=== PATIENT | male | born 1960 | race Caucasian/White ===

== ENCOUNTER → 2021-10-16 15:41 | Outpatient (REF) | payer BC, SELFPAY | LOC: ANHLAB 15:41 | PROVIDERS: PCP Physician Assistant; Visit Provider Nurse Practitioner | DX: C44.329 Squamous cell carcinoma of skin of other parts of face (principal) | CPT/HCPCS: 88305; 88342 ==

== ENCOUNTER 2021-10-22 10:09 | Outpatient (CLI) | payer BC, SELFPAY ==
--- NOTE | ~2021-10-22 | CT_ITS ---
EXAMINATION: CT soft tissue neck wo/w con DATE: 10/22/2021 10:55 INDICATION: Right cheek squamous cell carcinoma. TECHNIQUE: Computed tomography (CT) of the neck was performed without and with 100 mL Omnipaque 350 i ntravenous contrast. Automated exposure control and iterative reconstruction technique were employed. The dose-length product was 1099.98 mGy-cm. COMPARISON: None FINDINGS: There is a 3.3 x 2.7 cm mass in right cheek involving the skin and abutting the right jocy ter muscle. There is a 2.0 x 1.4 cm mass in superficial right parotid gland. There are nodules in the thyroid measuring up to 5 mm, likely not clinically significant. There is a 12 x 11 mm partially cys tic high right internal jugular chain lymph node. There is a partially cystic normal-sized heart inte rnal jugular chain lymph node. There is mild mucosal thickening in the paranasal sinuses. The mastoid air cells are normal. There is mild cervical spondylosis. IMPRESSION: 1. 3.3 x 2.7 cm mass in right cheek, consistent with primary squamous cell carcinoma. 2. 2.0 x 1.4 cm mass in superficial right parotid gland, most likely juan carlos metastatic disease. The di fferential diagnosis also includes benign mixed tumor, Warthin tumor, and primary malignancy. 3. High right internal jugular chain lymphadenopathy, consistent with metastatic disease. Reviewed, dictated and finalized at location A. IMPRESSION: 1. 3.3 x 2.7 cm mass in right cheek, consistent with primary squamous cell carc inoma. 2. 2.0 x 1.4 cm mass in superficial right parotid gland, most likely juan carlos meta static disease. The differential diagnosis also includes benign mixed tumor, Wa rthin tumor, and primary malignancy. 3. High right internal jugular chain lymphadenopathy, consistent with metastati c disease.
--- NOTE | ~2021-10-22 | CT_ITS ---
EXAMINATION: CT brain wo/w con DATE: 10/22/2021 10:55 INDICATION: Squamous cell carcinoma of right cheek. TECHNIQUE: Computed tomography (CT) of the head was performed without and with 100 mL Omnipaque 350 i ntravenous contrast. The mA was adjusted according to patient size. Iterative reconstruction techniqu e was employed. The dose-length product was 1362.00 mGy-cm. COMPARISON: None FINDINGS: There is no intracranial hemorrhage, acute infarction, or abnormal intracranial mass lesion . The ventricles are normal in size. The orbits are normal. There is mild mucosal thickening in the p aranasal sinuses. The mastoid air cells are normal. IMPRESSION: 1. Normal brain. Reviewed, dictated and finalized at location A. IMPRESSION: 1. Normal brain.
== END 2021-10-22 10:10 | disposition home or self-care (01) ==
PROVIDERS: PCP Physician Assistant; Visit Provider Nurse Practitioner
DX: C44.329 Squamous cell carcinoma of skin of other parts of face (principal)
CPT/HCPCS: 70470; 70492; Q9967